=== PATIENT | male | born 1960 | race Caucasian/White ===

== ENCOUNTER → 2016-06-10 | Outpatient (CLI) | payer BC ==
[~2016-06-10] MED LIST: BLOOD PRESSURE MED
--- NOTE | 2016-06-10 14:27 | DIAGNOSTIC IMAGING REPORT ---
RIGHT FOOT MIN 3 VIEWS CLINICAL HISTORY: RIGHT 5TH TOE INJURY Right trauma. Pain. COMPARISON: None. DISCUSSION: Nondisplaced cortical fracture base proximal phalanx fifth toe. Shows evidence for developing healing and or callus formation. Mild degenerative change of all remaining osseous structures. Small heel spur is present. There is no evidence for soft tissue swelling. IMPRESSION: Healing fracture base proximal phalanx fifth toe. Electronically signed by: Gonzales Mcclure M.D. 06/10/2016 2:26 PM Dictated Date/Time: 06/10/2016 2:23 PM
== END | disposition home or self-care (01) ==
LOC: C.RDSM 11:10
PROVIDERS: ATTEND Internal Medicine
DX: S92.511D Displaced fracture of proximal phalanx of right lesser toe(s), subsequent encounter for fracture with routine healing (principal); X58.XXXD Exposure to other specified factors, subsequent encounter